=== PATIENT | female | born 1975 | race Caucasian/White ===

== ENCOUNTER 2023-08-11 14:18 | Inpatient (IN) ==
--- NOTE | 2023-08-11 15:36 | DR.CP ---
HPI Time Seen Time Seen by Provider: 08/11/23 15:36 PCP Primary Care Physician: dia Complaint Chief Complaint Doctor Comments: 48-year-old female presents for evaluation. Patient had sudden onset chest/back pain work, approximate 3 hours ago. 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 Chest pain better, now with pain across to her low back, coming and going. Worse with movement, worse with breathing. Chief Complaint:: pt reports right sided chest pain 10/10 that radiates to her back. states she cannot describe the pain but slightly improves with rest and worsens with exertion. pt denies cardiac hx. no other symptoms reported. pain started approx 1130 this morning Self Treatment fo Chief Complaint: n/a COVID-19 Coronavirus risk:travel/contact w/high risk person: No Has patient experienced Coronavirus symptoms: No Reviewed Nurses Notes Review: Yes Source History Provided: Patient Mode of Arrival Mode of Arrival: Wheelchair Timing Onset of Chief Complaint: 08/11/23 PMH PMH Past Medical History: Yes Past Medical History: Anxiety Past Surgical History: No Family History History of Family Medical Conditions: Yes Family Medical History: Cancer Social History Does patient currently use any type of tobacco product: Yes Have you used tobacco products in the last 12 months: Yes Type of Tobacco Use: Cigarettes Alcohol Use: Occasionally Do you use any recreational Drugs:: No Lives With: Alone Lives Where: Home Travel Risk Coronavirus risk:travel/contact w/high risk person: No Has patient experienced Coronavirus symptoms: No Infectious screening In the last 2 months have you had wt loss of >10#?: NO Have you had fever, night sweats or hemotysis?: No Have you traveled outside the country in the last 6 months?: No Isolation: Standard ROS Review of Systems Constitutional: No Symptoms Reported Eyes: No Symptoms Reported ENTM: No Symptoms Reported Respiratoy: Short of Breath Cardiovascular: Chest Pain Gastrointestinal/Abdominal: No Symptoms Reported Genitourinary: No Symptoms Reported Neurological: No Symptoms Reported Musculoskeletal: Back Pain Integumentary: No Symptoms Reported Hematologic/Lymphatic: No Symptoms Reported Psychiatric: No Symptoms Reported All Other Systems: Reviewed and Negative PE Vitals Vitals: Vital Signs Temperature 97.3 F Pulse Rate 117 Respiratory Rate 22 Respiratory Rate 22 Respiratory Rate 22 Blood Pressure [Right Arm] 125/71 Blood Pressure 126/71 O2 Sat by Pulse Oximetry 100 O2 Sat by Pulse Oximetry 97 General General Appearance: Alert and In Distress (Appears uncomfortable) Eyes Eye exam: PERRL and EOMI ENT ENT Exam: Normal Oropharynx and Mucous Membranes Moist Chest Chest Inspection: Normal Inspection Respiratory Respiratory Exam: Other (Decreased breath sounds right base); negative Accessory Muscle Use or Respiratory Distress Cardiovascular Cardiovascular Exam: Regular Rate, Normal Rhythm and Normal Heart Sounds Abdominal Exam Abdominal Exam: Normal Bowel Sounds and Soft; negative Tenderness Extremities Extremities Exam: Normal Inspection and Full ROM; negative Tenderness or Edema Back Back Exam: Tenderness (Right paralumbar tenderness, greater than left) Neurologic Neurological Exam: Alert, Oriented X3 and CN II-XII Intact; negative Motor Sensory Deficit Skin Skin Exam: Warm and Dry COURSE Treatment Treatment: 48-year-old female who had sudden onset of chest pain, radiating to the back, prior to arrival. Coming and going, appears to be having back spasms. Workup initiated. Patient given IV Toradol/Ativan, helping.. Chest x-ray rakel ws right-sided pneumothorax, approximately 30%. Radiology read as a tension pneumothorax, but film is rotated, patient in no distress, doubt tension. Call put out to surgery, Dr. Bradshaw,, to place a chest tube. Patient's attending is Dr. Dia, he will admit and consult with surgeon. [id number] - Dr bradshaw placed chest tube on the right side, follow-up x-ray with improvement of the pneumothorax. ROR Labs Reviewed Laboratory Results Reviewed?: Yes 08/11/23 15:30 08/11/23 15:30 Laboratory: WBC 14.9 X10^3/uL (3.6-10.0) H 08/11/23 15:30 RBC 4.09 X10^6/uL (3.5-5.4) 08/11/23 15:30 Hgb 13.5 g/dL (12.0-16.0) 08/11/23 15:30 Hct 40.1 % (36.0-47.0) 08/11/23 15:30 MCV 98.0 fL (80.0-100.0) 08/11/23 15:30 MCH 33.1 pg (27.0-34.0) 08/11/23 15:30 MCHC 33.8 g/dL (33.0-35.0) 08/11/23 15:30 RDW 13.0 % (11.6-16.5) 08/11/23 15:30 Plt Count 315 X10^3/uL (150.0-450.0) 08/11/23 15:30 MPV 7.8 fL (7.4-11.0) 08/11/23 15:30 Neut % (Auto) 74.7 % (42.0-75.0) 08/11/23 15:30 Lymph % (Auto) 16.6 % (21.0-51.0) L 08/11/23 15:30 [place] % (Auto) 7.3 % (0.0-13.0) 08/11/23 15:30 Eos % (Auto) 1.0 % (0.9-2.9) 08/11/23 15:30 Baso % (Auto) 0.4 % (0.2-1.0) 08/11/23 15:30 Neut # (Auto) 11.1 x10^3/uL (2.2-4.8) H 08/11/23 15:30 Lymph # (Auto) 2.5 X10^3/uL (1.3-2.9) 08/11/23 15:30 [place] # (Auto) 1.1 x10^3/uL (0.3-0.8) H 08/11/23 15:30 Eos # (Auto) 0.2 x10^3/uL (0.0-0.2) 08/11/23 15:30 Baso # (Auto) 0.1 X10^3/uL (0.0-0.1) 08/11/23 15:30 Absolute Nucleated RBC 0.0 /100WBC 08/11/23 15:30 D-Dimer 0.55 ug/ml (0.0-0.57) 08/11/23 15:30 Sodium 138 mmol/L (136-145) 08/11/23 15:30 Corrected Sodium TNP 08/11/23 15:30 Potassium 3.5 mmol/L (3.5-5.1) 08/11/23 15:30 Chloride 104 mmol/L (98-107) 08/11/23 15:30 Carbon Dioxide 24.9 mmol/L (21-32) 08/11/23 15:30 BUN 12 mg/dL (7-18) 08/11/23 15:30 Creatinine 0.69 mg/dL (0.55-1.02) 08/11/23 15:30 Est GFR (MDRD) Af Amer > 60 (>60) 08/11/23 15:30 Est GFR (MDRD) Non-Af > 60 (>60) 08/11/23 15:30 Glucose 102 mg/dL (65-99) H 08/11/23 15:30 Calcium 8.8 mg/dL (8.5-10.1) 08/11/23 15:30 Corrected Calcium TNP 08/11/23 15:30 Total Bilirubin 0.40 mg/dL (0.2-1.0) 08/11/23 15:30 AST 22 Units/L (15-37) 08/11/23 15:30 ALT 30 Units/L (12-78) 08/11/23 15:30 Alkaline Phosphatase 91 Units/L (46-116) 08/11/23 15:30 Troponin I High Sens < 4.0 ng/L (4.0-60.0) L 08/11/23 15:30 Total Protein 7.7 g/dL (6.4-8.2) 08/11/23 15:30 Albumin 3.7 g/dL (3.4-5.0) 08/11/23 15:30 Globulin 4.0 g/dL (2.5-4.5) 08/11/23 15:30 Albumin/Globulin Ratio 0.9 Ratio (1.1-2.1) L 08/11/23 15:30 Lipase 31 Units/L (16-77) 08/11/23 15:30 Specimen Type Clean catch urine 08/11/23 15:26 Urine Color Yellow (YELLOW) 08/11/23 15:26 Urine Appearance Clear (CLEAR) 08/11/23 15:26 Urine pH 6.0 (5.0 - 8.0) 08/11/23 15:26 Ur Specific [place] 1.030 (1.000-1.030) 08/11/23 15:26 Urine Protein 1+ (NEGATIVE) 08/11/23 15:26 Urine Glucose (UA) Negative (NEGATIVE) 08/11/23 15: Urine Ketones 2+ (NEGATIVE) 08/11/23 15:26 Urine Blood 1+ (NEGATIVE) 08/11/23 15:26 Urine Nitrite Negative (NEGATIVE) 08/11/23 15:26 Urine Bilirubin Negative (NEGATIVE) 08/11/23 15:26 Urine Urobilinogen 1+ (NORMAL) 08/11/23 15:26 Ur Leukocyte Esterase Negative (NEGATIVE) 08/11/23 15:26 Urine RBC 0-2 /HPF (0-3) 08/11/23 15:26 Urine WBC None seen /HPF (0-5) 08/11/23 15:26 Ur Squamous Epith Cells Rare /HPF (NEGATIVE) 08/11/23 15:26 Urine Bacteria Trace /HPF (NEGATIVE) 08/11/23 15:26 Hyaline Casts Rare /LPF (NEGATIVE) 08/11/23 15:26 Urine Mucus Rare /HPF (NEGATIVE) 08/11/23 15:26 Ur Culture Indicated? No/not indicated 08/11/23 15:26 Labs acceptable XRAY XRAY Interpreted by: Both X-ray Results: EXAM: CHEST, 1 VIEW HISTORY: RT SIDED chest PAIN; COMPARISON: None. TECHNIQUE: Chest x-ray single frontal view performed FINDINGS: There is a large right-sided pneumothorax which extends from the apex to the lung base with maximum pleural separation of greater than 3.7 cm. Total volume of the pneumothorax is estimated at 30%. There is leftward shift of the mediastinal structures indicating a tension component. This also contributes to compression of the lung parenchyma with adjacent atelectasis in the medial right lung base. No organized infiltrates are identified in the pleural spaces remain clear. The heart size is normal. No acute osseous abnormalities of the chest are identified. IMPRESSION: Large right-sided tension pneumothorax resulting in early leftward shift of the mediastinal structures and compression related atelectasis within the medial right lung base. Urgent chest tube placement is recommended. Follow-up radiographs are suggested following surgical intervention to monitor for decompression. A call report will be provided to the emergency room at the time of this dictation. THIS IS AN ELECTRONICALLY VERIFIED FINAL REPORT 08/11/2023 4:49 PM - Electronically signed by Andre Abreu MD I do not believe the patient's pneumothorax is tension, as the chest film is rotated - Dr Streeter EKG Rate: 103 [place]: Normal Rhythm: ST Block: RBBB (Incomplete) ST: Nonsp Opioid Opioid Risk Tool Age (Manav box if 16-45): No History of Preadolescent Sexual Abuse: No Total: 0 Total Score Risk Category: Low Risk Copyright: Tomi MCFADDEN predicting aberrant behaviors Discharge Plan Diagnosis Discharge Problem: Pneumothorax, right Discharge Plan Patient Disposition: 09 ADMITTED INPATIENT Condition: Stable Orders to Discharge Patient Discharge Orders: Transfer (Routine); Ordered 08/11/23 Ordered By: Marvin Streeter
[2023-08-11 15:40] LABS: BILIRUBIN,URINE NEGATIVE (NEGATIVE); BLOOD/HEMOGLOBIN,URINE 1+ (NEGATIVE); GLUCOSE, URINE NEGATIVE (NEGATIVE); KETONES,URINE 2+ (NEGATIVE); LEUKOCYTE ESTERASE ,URINE NEGATIVE (NEGATIVE); NITRITES,URINE NEGATIVE (NEGATIVE); PROTEIN,URINE 1+ (NEGATIVE); UROBILINOGEN,URINE 1+ (NORMAL)
--- NOTE | 2023-08-11 15:46 | EKG ---
Test Reason : chest pain Blood Pressure : */* mmHG Vent. Rate : 103 BPM Atrial Rate : 103 BPM P-R Int : 140 ms QRS Dur : 92 ms QT Int : 354 ms P-R-T Axes : 89 83 20 degrees QTc Int : 463 ms Sinus tachycardia Incomplete right bundle branch block T wave abnormality, consider anterior ischemia Abnormal ECG No previous ECGs available Confirmed by Luis Montenegro MD ([id number]) on 08/12/2023 7:21:58 AM Referred By: Confirmed By: Luis Montenegro MD
[2023-08-11 15:52] LABS: APPEARANCE,URINE CLEAR (CLEAR); BACTERIA,URINE TRACE /HPF (NEGATIVE); COLOR,URINE YELLOW (YELLOW); RBC,URINE 0-2 /HPF (0-3); SQUAMOUS EPITHELIAL CELL,UR RARE /HPF (NEGATIVE)
[2023-08-11 15:53] LABS: HYALINE CASTS, URINE RARE /LPF (NEGATIVE)
[2023-08-11] MEDS: ATIVAN INJ 2 MG VIAL IVP ONE (15:53)
[2023-08-11] MEDS: TORADOL 30 MG VIAL IVP ONE (15:53)
[2023-08-11] MEDS: NS 500 ML IV 500 ML IV ONE ×2 (15:54→16:29)
[2023-08-11 16:09] LABS: BASOPHILS # (AUTO) 0.1 X10^3/uL (0.0-0.1); BASOPHILS % (AUTO) 0.4 % (0.2-1.0); EOSINOPHILS # (AUTO) 0.2 x10^3/uL (0.0-0.2); HEMATOCRIT 40.1 % (36.0-47.0); HEMOGLOBIN 13.5 g/dL (12.0-16.0); LYMPHOCYTES # (AUTO) 2.5 X10^3/uL (1.3-2.9); LYMPHOCYTES % (AUTO) 16.6 % (21.0-51.0); MEAN CORPUSCULAR HEMOGLOBIN 33.1 pg (27.0-34.0); MEAN CORPUSCULAR HGB CONC 33.8 g/dL (33.0-35.0); MEAN PLATELET VOLUME 7.8 fL (7.4-11.0); MONOCYTES # (AUTO) 1.1 x10^3/uL (0.3-0.8); MONOCYTES % (AUTO) 7.3 % (0.0-13.0); NEUTROPHILS # (AUTO) 11.1 x10^3/uL (2.2-4.8); NEUTROPHILS % (AUTO) 74.7 % (42.0-75.0); PLATELET COUNT 315 X10^3/uL (150.0-450.0); RED BLOOD COUNT 4.09 X10^6/uL (3.5-5.4); WHITE BLOOD COUNT 14.9 X10^3/uL (3.6-10.0)
[2023-08-11 16:29] LABS: ALANINE AMINOTRANSFERASE 30 Units/L (12-78); ALBUMIN 3.7 g/dL (3.4-5.0); ALKALINE PHOSPHATASE 91 Units/L (46-116); ASPARTATE AMINO TRANSFERASE 22 Units/L (15-37); BLOOD UREA NITROGEN 12 mg/dL (7-18); CALCIUM 8.8 mg/dL (8.5-10.1); CARBON DIOXIDE 24.9 mmol/L (21-32); CHLORIDE 104 mmol/L (98-107); CREATININE 0.69 mg/dL (0.55-1.02); GLUCOSE 102 mg/dL (65-99); LIPASE 31 Units/L (16-77); POTASSIUM 3.5 mmol/L (3.5-5.1); SODIUM 138 mmol/L (136-145); TOTAL PROTEIN 7.7 g/dL (6.4-8.2); eGFR NON BLACK RACES > 60 (>60)
[2023-08-11] MEDS: TORADOL 30 MG VIAL ONE (16:29)
[2023-08-11] MEDS: ATIVAN INJ 2 MG VIAL ONE (16:29)
--- NOTE | 2023-08-11 16:52 | RAD ---
EXAM:CHEST, 1 VIEWHISTORY:RT SIDED chest PAIN;COMPARISON:None.TECHNIQUE:Chest x-ray single frontal view performedFINDINGS:There is a large right-sided pneumothorax which extends from the apex to the lung base with maximum pleural separation of greater than 3.7 cm. Total volume of the pneumothorax is estimated at 30%. There is leftward shift of the mediastinal structures indicating a tension component. This also contributes to compression of the lung parenchyma with adjacent atelectasis in the medial right lung base. No organized infiltrates are identified in the pleural spaces remain clear. The heart size is normal. No acute osseous abnormalities of the chest are identified.IMPRESSION:Large right-sided tension pneumothorax resulting in early leftward shift of the mediastinal structures and compression related atelectasis within the medial right lung base.Urgent chest tube placement is recommended. Follow-up radiographs are suggested following surgical intervention to monitor for decompression.A call report will be provided to the emergency room at the time of this dictation.THIS IS AN ELECTRONICALLY VERIFIED FINAL REPORT08/11/2023 4:49 PM - Electronically signed by Andre Abreu MD
[2023-08-11] MEDS: VERSED IVP ONE (17:30)
[2023-08-11] MEDS: MORPHINE SULFATE INJ 4 MG IVP ONE (17:30)
[2023-08-11] MEDS ORDERED: MORPHINE SULFATE INJ 4 MG ONE (17:31)
[2023-08-11] MEDS ORDERED: VERSED ONE (17:31)
[2023-08-11] MEDS ORDERED: ZOFRAN INJ 4 MG VIAL IVP PRN (19:32)
[2023-08-11] MEDS ORDERED: MORPHINE SULFATE INJ 4 MG IVP PRN (19:32)
[2023-08-11 20:09] VITALS: BMI 14.6
--- NOTE | 2023-08-11 20:15 | RAD ---
EXAM:CHEST, 1 VIEWHISTORY:CHEST TUBE PLACEMENT;COMPARISON:08/11/2023 at 4:03 p.m..TECHNIQUE:Frontal views of the chestFINDINGS:Heart size is normal. A right-sided chest tube has successfully been placed and the right-sided pneumothorax is much smaller. There is no complication identified.IMPRESSION:Successful right-sided chest tube placement and increased expansion of the right lung.THIS IS AN ELECTRONICALLY VERIFIED FINAL REPORT08/11/2023 8:12 PM - Electronically signed by Bird Pierce MD
[2023-08-11] MEDS: XYLOCAINE 1 % (PLAIN) ONE (20:22)
[2023-08-11] MEDS: NORCO 5/325 MG TAB PO PRN (20:56)
[2023-08-11] MEDS: ANCEF VIAL 1 GRAM IVP SCH (21:28)
[2023-08-11] MEDS: K-DUR TAB 20 MEQ PO ONE (21:28)
[2023-08-12 05:08] LABS: BASOPHILS % (AUTO) 0.5 % (0.2-1.0); EOSINOPHILS # (AUTO) 0.2 x10^3/uL (0.0-0.2); EOSINOPHILS % (AUTO) 2.7 % (0.9-2.9); HEMOGLOBIN 12.2 g/dL (12.0-16.0); LYMPHOCYTES % (AUTO) 12.6 % (21.0-51.0); MEAN CORPUSCULAR HEMOGLOBIN 33.9 pg (27.0-34.0); MEAN CORPUSCULAR HGB CONC 34.1 g/dL (33.0-35.0); MEAN CORPUSCULAR VOLUME 99.4 fL (80.0-100.0); MEAN PLATELET VOLUME 7.7 fL (7.4-11.0); MONOCYTES # (AUTO) 0.9 x10^3/uL (0.3-0.8); MONOCYTES % (AUTO) 11.1 % (0.0-13.0); NEUTROPHILS # (AUTO) 5.9 x10^3/uL (2.2-4.8); NEUTROPHILS % (AUTO) 73.1 % (42.0-75.0); PLATELET COUNT 260 X10^3/uL (150.0-450.0); RED BLOOD COUNT 3.62 X10^6/uL (3.5-5.4); RED CELL DISTRIBUTION WIDTH 13.1 % (11.6-16.5); WHITE BLOOD COUNT 8.1 X10^3/uL (3.6-10.0)
[2023-08-12 05:25] LABS: ALANINE AMINOTRANSFERASE 24 Units/L (12-78); ALBUMIN 2.8 g/dL (3.4-5.0); ALKALINE PHOSPHATASE 64 Units/L (46-116); ASPARTATE AMINO TRANSFERASE 20 Units/L (15-37); BLOOD UREA NITROGEN 10 mg/dL (7-18); CARBON DIOXIDE 25.2 mmol/L (21-32); CHLORIDE 106 mmol/L (98-107); CREATININE 0.55 mg/dL (0.55-1.02); GLUCOSE 87 mg/dL (65-99); POTASSIUM 3.7 mmol/L (3.5-5.1); SODIUM 141 mmol/L (136-145); eGFR NON BLACK RACES > 60 (>60)
--- NOTE | 2023-08-12 08:12 | RAD ---
EXAM: Portable AP chest HISTORY: Pneumothorax COMPARISON: 08/11/2023 FINDINGS: Heart size normal with no definite pulmonary infiltrate/pneumonia or significant pneumothorax now re maining. Stable position of right chest tube. The pleural spaces and hilar structures remain normal . IMPRESSION: Similar position of right chest tube. There is no significant pneumothorax now demonstrated. THIS IS AN ELECTRONICALLY VERIFIED FINAL REPORT 08/12/2023 8:09 AM - Electronically signed by Iain Foster MD
[2023-08-12] MEDS: MAG-OX TAB PO SCH (09:02)
[2023-08-12] MEDS: K-DUR TAB 20 MEQ PO SCH (09:02)
--- NOTE | 2023-08-12 09:47 | DR.PROGNOT ---
HOSPITAL PROGRESS NOTE Progress Note for Day of: Progress Note Date: 08/12/23 Chief Complaint Chief Complaint: Pt is comfortable ,c/o moderate pain at the CT site . no SOB. no coughing . chest X ray showed good tube placement and no pneumothorax.. Past Medical Family Social History Past Med/Fam/Surg Hx: No changes since H&P Allergies: Allergies No Known Drug Allergies Allergy (Unknown, Verified 08/11/23 17:10) Vital Signs Vital Signs: Vital Signs Temperature 98.5 F Pulse Rate 65 Pulse Rate 75 Pulse Rate 73 Pulse Rate 91 Pulse Rate 85 Pulse Rate 71 Pulse Rate 76 Pulse Rate 61 Pulse Rate 62 Pulse Rate 65 Pulse Rate 60 Pulse Rate 58 Pulse Rate 60 Pulse Rate 62 Pulse Rate 61 Pulse Rate 62 Pulse Rate 62 Pulse Rate 62 Pulse Rate 63 Pulse Rate 66 Pulse Rate 64 Pulse Rate 67 Pulse Rate 61 Pulse Rate 62 Pulse Rate 61 Pulse Rate 79 Pulse Rate 75 Pulse Rate 65 Pulse Rate 65 Pulse Rate 61 Pulse Rate 62 Pulse Rate 67 Pulse Rate 67 Pulse Rate 67 Respiratory Rate 21 Respiratory Rate 19 Respiratory Rate 24 Respiratory Rate 23 Respiratory Rate 17 Respiratory Rate 23 Respiratory Rate 33 Respiratory Rate 20 Respiratory Rate 16 Respiratory Rate 34 Respiratory Rate 22 Respiratory Rate 18 Respiratory Rate 26 Respiratory Rate 22 Respiratory Rate 24 Respiratory Rate 23 Respiratory Rate 25 Respiratory Rate 15 Respiratory Rate 21 Respiratory Rate 21 Respiratory Rate 15 Respiratory Rate 19 Respiratory Rate 15 Respiratory Rate 21 Respiratory Rate 18 Respiratory Rate 23 Respiratory Rate 17 Respiratory Rate 19 Respiratory Rate 29 Respiratory Rate 17 Respiratory Rate 16 Respiratory Rate 16 Respiratory Rate 16 Respiratory Rate 17 Respiratory Rate 17 Respiratory Rate 18 Blood Pressure 99/55 Blood Pressure 106/58 Blood Pressure 105/57 Blood Pressure 105/57 Blood Pressure 95/50 Blood Pressure 95/50 Blood Pressure 116/57 Blood Pressure 116/57 Blood Pressure 116/57 Blood Pressure 96/58 Blood Pressure 96/58 O2 Sat by Pulse Oximetry 100 O2 Sat by Pulse Oximetry 100 O2 Sat by Pulse Oximetry 98 O2 Sat by Pulse Oximetry 98 O2 Sat by Pulse Oximetry 99 O2 Sat by Pulse Oximetry 99 O2 Sat by Pulse Oximetry 100 O2 Sat by Pulse Oximetry 100 O2 Sat by Pulse Oximetry 99 O2 Sat by Pulse Oximetry 100 O2 Sat by Pulse Oximetry 100 O2 Sat by Pulse Oximetry 100 O2 Sat by Pulse Oximetry 100 O2 Sat by Pulse Oximetry 100 O2 Sat by Pulse Oximetry 100 O2 Sat by Pulse Oximetry 100 O2 Sat by Pulse Oximetry 100 O2 Sat by Pulse Oximetry 99 O2 Sat by Pulse Oximetry 99 O2 Sat by Pulse Oximetry 99 O2 Sat by Pulse Oximetry 100 O2 Sat by Pulse Oximetry 99 O2 Sat by Pulse Oximetry 100 O2 Sat by Pulse Oximetry 100 O2 Sat by Pulse Oximetry 100 O2 Sat by Pulse Oximetry 98 O2 Sat by Pulse Oximetry 99 O2 Sat by Pulse Oximetry 100 O2 Sat by Pulse Oximetry 99 O2 Sat by Pulse Oximetry 100 O2 Sat by Pulse Oximetry 100 O2 Sat by Pulse Oximetry 100 O2 Sat by Pulse Oximetry 100 O2 Sat by Pulse Oximetry 100 Physical Exam Oriented: Normal Throat: Normal Respiratory: Normal Cardiovascular: Normal GI:Auscultation: Normal Speech Pattern: Clear and Appropriate Laboratory and Diagnostics 08/12/23 04:41 08/12/23 04:41 Labs: Laboratory WBC 8.1 X10^3/uL (3.6-10.0) 08/12/23 04:41 RBC 3.62 X10^6/uL (3.5-5.4) 08/12/23 04:41 Hgb 12.2 g/dL (12.0-16.0) 08/12/23 04:41 Hct 36.0 % (36.0-47.0) 08/12/23 04:41 MCV 99.4 fL (80.0-100.0) 08/12/23 04:41 MCH 33.9 pg (27.0-34.0) 08/12/23 04:41 MCHC 34.1 g/dL (33.0-35.0) 08/12/23 04:41 RDW 13.1 % (11.6-16.5) 08/12/23 04:41 Plt Count 260 X10^3/uL (150.0-450.0) 08/12/23 04:41 MPV 7.7 fL (7.4-11.0) 08/12/23 04:41 Neut % (Auto) 73.1 % (42.0-75.0) 08/12/23 04:41 Lymph % (Auto) 12.6 % (21.0-51.0) L 08/12/23 04:41 [place] % (Auto) 11.1 % (0.0-13.0) 08/12/23 04:41 Eos % (Auto) 2.7 % (0.9-2.9) 08/12/23 04:41 Baso % (Auto) 0.5 % (0.2-1.0) 08/12/23 04:41 Neut # (Auto) 5.9 x10^3/uL (2.2-4.8) H 08/12/23 04:41 Lymph # (Auto) 1.0 X10^3/uL (1.3-2.9) L 08/12/23 04:41 [place] # (Auto) 0.9 x10^3/uL (0.3-0.8) H 08/12/23 04:41 Eos # (Auto) 0.2 x10^3/uL (0.0-0.2) 08/12/23 04:41 Baso # (Auto) 0.0 X10^3/uL (0.0-0.1) 08/12/23 04:41 Absolute Nucleated RBC 0.1 /100WBC 08/12/23 04:41 D-Dimer 0.55 ug/ml (0.0-0.57) 08/11/23 15:30 Sodium 141 mmol/L (136-145) 08/12/23 04:41 Corrected Sodium TNP 08/12/23 04:41 Potassium 3.7 mmol/L (3.5-5.1) 08/12/23 04:41 Chloride 106 mmol/L (98-107) 08/12/23 04:41 Carbon Dioxide 25.2 mmol/L (21-32) 08/12/23 04:41 BUN 10 mg/dL (7-18) 08/12/23 04:41 Creatinine 0.55 mg/dL (0.55-1.02) 08/12/23 04:41 Est GFR (MDRD) Af Amer > 60 (>60) 08/12/23 04:41 Est GFR (MDRD) Non-Af > 60 (>60) 08/12/23 04:41 Glucose 87 mg/dL (65-99) 08/12/23 04:41 Calcium 8.0 mg/dL (8.5-10.1) L 08/12/23 04:41 Corrected Calcium 9.0 mg/dL (8.5-10.1) 08/12/23 04:41 Magnesium 1.8 mg/dL (2.0-2.9) L 08/12/23 04:41 Total Bilirubin 0.90 mg/dL (0.2-1.0) 08/12/23 04:41 AST 20 Units/L (15-37) 08/12/23 04:41 ALT 24 Units/L (12-78) 08/12/23 04:41 Alkaline Phosphatase 64 Units/L (46-116) 08/12/23 04:41 Troponin I High Sens < 4.0 ng/L (4.0-60.0) L 08/11/23 15:30 Total Protein 6.0 g/dL (6.4-8.2) L 08/12/23 04:41 Albumin 2.8 g/dL (3.4-5.0) L 08/12/23 04:41 Globulin 3.2 g/dL (2.5-4.5) 08/12/23 04:41 Albumin/Globulin Ratio 0.9 Ratio (1.1-2.1) L 08/12/23 04:41 Lipase 31 Units/L (16-77) 08/11/23 15:30 Specimen Type Clean catch urine 08/11/23 15:26 Urine Color Yellow (YELLOW) 08/11/23 15:26 Urine Appearance Clear (CLEAR) 08/11/23 15:26 Urine pH 6.0 (5.0 - 8.0) 08/11/23 15:26 Ur Specific [place] 1.030 (1.000-1.030) 08/11/23 15:26 Urine Protein 1+ (NEGATIVE) 08/11/23 15:26 Urine Glucose (UA) Negative (NEGATIVE) 08/11/23 15:26 Urine Ketones 2+ (NEGATIVE) 08/11/23 15:26 Urine Blood 1+ (NEGATIVE) 08/11/23 15:26 Urine Nitrite Negative (NEGATIVE) 08/11/23 15:26 Urine Bilirubin Negative (NEGATIVE) 08/11/23 15:26 Urine Urobilinogen 1+ (NORMAL) 08/11/23 15:26 Ur Leukocyte Esterase Negative (NEGATIVE) 08/11/23 15:26 Urine RBC 0-2 /HPF (0-3) 08/11/23 15:26 Urine WBC None seen /HPF (0-5) 08/11/23 15:26 Ur Squamous Epith Cells Rare /HPF (NEGATIVE) 08/11/23 15:26 Urine Bacteria Trace /HPF (NEGATIVE) 08/11/23 15:26 Hyaline Casts Rare /LPF (NEGATIVE) 08/11/23 15:26 Urine Mucus Rare /HPF (NEGATIVE) 08/11/23 15:26 Ur Culture Indicated? No/not indicated 08/11/23 15:26 Assessment and Plan 1: RT pneumothorax, S/P placement of chest tube . same plan . incentive spirometer chest X ray in am .. Problem Patient Problems: Patient Problems Pneumothorax, right (Acute) J93.9
[2023-08-12] MEDS: CONSULT PHARMACY - POTASSIUM & MAGNESIUM XX SCH ×2 (10:05)
[2023-08-12] MEDS: LEXAPRO PO SCH (10:06)
[2023-08-12] MEDS: TORADOL 15 MG VIAL IVP PRN (17:28)
[2023-08-12] MEDS: COLACE CAP 100 MG PO SCH (21:33)
[2023-08-13 06:44] LABS: BASOPHILS # (AUTO) 0.1 X10^3/uL (0.0-0.1); BASOPHILS % (AUTO) 0.7 % (0.2-1.0); EOSINOPHILS # (AUTO) 0.3 x10^3/uL (0.0-0.2); EOSINOPHILS % (AUTO) 3.2 % (0.9-2.9); HEMATOCRIT 36.4 % (36.0-47.0); HEMOGLOBIN 12.4 g/dL (12.0-16.0); LYMPHOCYTES # (AUTO) 1.4 X10^3/uL (1.3-2.9); LYMPHOCYTES % (AUTO) 15.2 % (21.0-51.0); MEAN CORPUSCULAR HEMOGLOBIN 33.9 pg (27.0-34.0); MEAN CORPUSCULAR HGB CONC 33.9 g/dL (33.0-35.0); MEAN CORPUSCULAR VOLUME 99.8 fL (80.0-100.0); MEAN PLATELET VOLUME 7.4 fL (7.4-11.0); MONOCYTES # (AUTO) 1.1 x10^3/uL (0.3-0.8); MONOCYTES % (AUTO) 11.4 % (0.0-13.0); NEUTROPHILS # (AUTO) 6.4 x10^3/uL (2.2-4.8); NEUTROPHILS % (AUTO) 69.5 % (42.0-75.0); PLATELET COUNT 249 X10^3/uL (150.0-450.0); RED BLOOD COUNT 3.65 X10^6/uL (3.5-5.4); RED CELL DISTRIBUTION WIDTH 12.7 % (11.6-16.5); WHITE BLOOD COUNT 9.2 X10^3/uL (3.6-10.0)
[2023-08-13 06:56] LABS: ALANINE AMINOTRANSFERASE 19 Units/L (12-78); ALBUMIN 2.7 g/dL (3.4-5.0); ALKALINE PHOSPHATASE 67 Units/L (46-116); ASPARTATE AMINO TRANSFERASE 16 Units/L (15-37); BLOOD UREA NITROGEN 7 mg/dL (7-18); CARBON DIOXIDE 26.9 mmol/L (21-32); CHLORIDE 106 mmol/L (98-107); CREATININE 0.59 mg/dL (0.55-1.02); GLUCOSE 93 mg/dL (65-99); MAGNESIUM 2.2 mg/dL (2.0-2.9); POTASSIUM 4.3 mmol/L (3.5-5.1); SODIUM 139 mmol/L (136-145); TOTAL PROTEIN 6.2 g/dL (6.4-8.2); eGFR NON BLACK RACES > 60 (>60)
[2023-08-13] MEDS: BUSPAR PO PRN (08:13)
[2023-08-13] MEDS: LEXAPRO ONE (08:32)
--- NOTE | 2023-08-13 08:42 | RAD ---
EXAM:CHEST, 1 VIEWHISTORY:Pneumothorax S/P Chest tube;COMPARISON:08/12/2023FINDINGS:The cardiomediastinal silhouette is stable.Chronic interstitial changes in the lungs. No acute airspace disease. No pneumothorax or effusion.No acute osseous abnormality.IMPRESSION:No acute cardiopulmonary disease.THIS IS AN ELECTRONICALLY VERIFIED FINAL REPORT08/13/2023 8:39 AM - Electronically signed by Lanre Guevara MD
[2023-08-14 04:43] LABS: BASOPHILS # (AUTO) 0.1 X10^3/uL (0.0-0.1); BASOPHILS % (AUTO) 0.7 % (0.2-1.0); EOSINOPHILS # (AUTO) 0.4 x10^3/uL (0.0-0.2); EOSINOPHILS % (AUTO) 4.9 % (0.9-2.9); LYMPHOCYTES # (AUTO) 1.3 X10^3/uL (1.3-2.9); LYMPHOCYTES % (AUTO) 15.6 % (21.0-51.0); MEAN CORPUSCULAR HEMOGLOBIN 33.4 pg (27.0-34.0); MEAN CORPUSCULAR HGB CONC 33.4 g/dL (33.0-35.0); MEAN PLATELET VOLUME 7.8 fL (7.4-11.0); MONOCYTES % (AUTO) 11.7 % (0.0-13.0); NEUTROPHILS # (AUTO) 5.5 x10^3/uL (2.2-4.8); NEUTROPHILS % (AUTO) 67.1 % (42.0-75.0); PLATELET COUNT 267 X10^3/uL (150.0-450.0); RED CELL DISTRIBUTION WIDTH 12.9 % (11.6-16.5); WHITE BLOOD COUNT 8.2 X10^3/uL (3.6-10.0)
[2023-08-14 04:53] LABS: ALANINE AMINOTRANSFERASE 17 Units/L (12-78); ALBUMIN 2.6 g/dL (3.4-5.0); ALKALINE PHOSPHATASE 62 Units/L (46-116); ASPARTATE AMINO TRANSFERASE 16 Units/L (15-37); BLOOD UREA NITROGEN 9 mg/dL (7-18); CALCIUM 8.2 mg/dL (8.5-10.1); CARBON DIOXIDE 27.3 mmol/L (21-32); CHLORIDE 107 mmol/L (98-107); COR CA(FOR HYPOALB) 9.3 mg/dL (8.5-10.1); CREATININE 0.58 mg/dL (0.55-1.02); GLUCOSE 94 mg/dL (65-99); POTASSIUM 4.5 mmol/L (3.5-5.1); SODIUM 139 mmol/L (136-145); TOTAL PROTEIN 6.2 g/dL (6.4-8.2); eGFR NON BLACK RACES > 60 (>60)
[2023-08-14] MEDS: LEXAPRO ONE (08:42)
--- NOTE | 2023-08-15 06:50 | RAD ---
EXAM: AP chest HISTORY: Pneumothorax COMPARISON: 08/13/2023 FINDINGS: Heart size normal with clear left chest. Stable position of right chest tube. A small right upper pneumothorax is now noted estimated at 5%. There is no evidence for pleural effusion or infiltrate/a telectasis. IMPRESSION: Small recurrent right upper pneumothorax. THIS IS AN ELECTRONICALLY VERIFIED FINAL REPORT 08/15/2023 6:47 AM - Electronically signed by Iain Foster MD
[2023-08-15] MEDS: PATIENT'S HOME MEDICATION PO PRN (08:10)
[2023-08-15] MEDS: PATIENT'S HOME MEDICATION PO SCH (08:10)
[2023-08-15] MEDS: MILK OF MAGNESIA PO PRN (17:31)
--- NOTE | 2023-08-15 17:31 | DR.PROGNOT ---
HOSPITAL PROGRESS NOTE Progress Note for Day of: Progress Note Date: 08/15/23 Chief Complaint Chief Complaint: Pt is comfortable ,c/o moderate pain at the CT site . no SOB. no coughing . chest X ray showed small pneumothorax . Past Medical Family Social History Past Med/Fam/Surg Hx: No changes since H&P Allergies: Allergies No Known Drug Allergies Allergy (Unknown, Verified 08/11/23 17:10) Vital Signs Vital Signs: Vital Signs Temperature 98.1 F Temperature 98.4 F Pulse Rate 62 Pulse Rate 72 Pulse Rate 74 Pulse Rate 61 Pulse Rate 60 Pulse Rate 60 Pulse Rate 68 Pulse Rate 71 Respiratory Rate 21 Respiratory Rate 20 Respiratory Rate 22 Respiratory Rate 27 Respiratory Rate 21 Respiratory Rate 18 Respiratory Rate 22 Respiratory Rate 17 Respiratory Rate 22 Respiratory Rate 24 Respiratory Rate 32 Blood Pressure 94/53 Blood Pressure 97/56 Blood Pressure 94/52 Blood Pressure 105/52 Blood Pressure 93/55 Blood Pressure 98/58 Blood Pressure 98/53 O2 Sat by Pulse Oximetry 99 O2 Sat by Pulse Oximetry 100 O2 Sat by Pulse Oximetry 99 O2 Sat by Pulse Oximetry 99 O2 Sat by Pulse Oximetry 99 O2 Sat by Pulse Oximetry 100 O2 Sat by Pulse Oximetry 100 O2 Sat by Pulse Oximetry 99 Physical Exam Oriented: Normal Throat: Normal Respiratory: Normal Cardiovascular: Normal GI:Auscultation: Normal Speech Pattern: Clear and Appropriate Laboratory and Diagnostics 08/14/23 04:12 08/14/23 04:12 Labs: Laboratory WBC 8.2 X10^3/uL (3.6-10.0) 08/14/23 04:12 RBC 3.60 X10^6/uL (3.5-5.4) 08/14/23 04:12 Hgb 12.0 g/dL (12.0-16.0) 08/14/23 04:12 Hct 36.0 % (36.0-47.0) 08/14/23 04:12 MCV 100.0 fL (80.0-100.0) 08/14/23 04:12 MCH 33.4 pg (27.0-34.0) 08/14/23 04:12 MCHC 33.4 g/dL (33.0-35.0) 08/14/23 04:12 RDW 12.9 % (11.6-16.5) 08/14/23 04:12 Plt Count 267 X10^3/uL (150.0-450.0) 08/14/23 04:12 MPV 7.8 fL (7.4-11.0) 08/14/23 04:12 Neut % (Auto) 67.1 % (42.0-75.0) 08/14/23 04:12 Lymph % (Auto) 15.6 % (21.0-51.0) L 08/14/23 04:12 [place] % (Auto) 11.7 % (0.0-13.0) 08/14/23 04:12 Eos % (Auto) 4.9 % (0.9-2.9) H 08/14/23 04:12 Baso % (Auto) 0.7 % (0.2-1.0) 08/14/23 04:12 Neut # (Auto) 5.5 x10^3/uL (2.2-4.8) H 08/14/23 04:12 Lymph # (Auto) 1.3 X10^3/uL (1.3-2.9) 08/14/23 04:12 [place] # (Auto) 1.0 x10^3/uL (0.3-0.8) H 08/14/23 04:12 Eos # (Auto) 0.4 x10^3/uL (0.0-0.2) H 08/14/23 04:12 Baso # (Auto) 0.1 X10^3/uL (0.0-0.1) 08/14/23 04:12 Absolute Nucleated RBC 0.0 /100WBC 08/14/23 04:12 D-Dimer 0.55 ug/ml (0.0-0.57) 08/11/23 15:30 Sodium 139 mmol/L (136-145) 08/14/23 04:12 Corrected Sodium TNP 08/14/23 04:12 Potassium 4.5 mmol/L (3.5-5.1) 08/14/23 04:12 Chloride 107 mmol/L (98-107) 08/14/23 04:12 Carbon Dioxide 27.3 mmol/L (21-32) 08/14/23 04:12 BUN 9 mg/dL (7-18) 08/14/23 04:12 Creatinine 0.58 mg/dL (0.55-1.02) 08/14/23 04:12 Est GFR (MDRD) Af Amer > 60 (>60) 08/14/23 04:12 Est GFR (MDRD) Non-Af > 60 (>60) 08/14/23 04:12 Glucose 94 mg/dL (65-99) 08/14/23 04:12 Calcium 8.2 mg/dL (8.5-10.1) L 08/14/23 04:12 Corrected Calcium 9.3 mg/dL (8.5-10.1) 08/14/23 04:12 Magnesium 2.2 mg/dL (2.0-2.9) 08/13/23 06:34 Total Bilirubin 0.40 mg/dL (0.2-1.0) 08/14/23 04:12 AST 16 Units/L (15-37) 08/14/23 04:12 ALT 17 Units/L (12-78) 08/14/23 04:12 Alkaline Phosphatase 62 Units/L (46-116) 08/14/23 04:12 Troponin I High Sens < 4.0 ng/L (4.0-60.0) L 08/11/23 15:30 Total Protein 6.2 g/dL (6.4-8.2) L 08/14/23 04:12 Albumin 2.6 g/dL (3.4-5.0) L 08/14/23 04:12 Globulin 3.6 g/dL (2.5-4.5) 08/14/23 04:12 Albumin/Globulin Ratio 0.7 Ratio (1.1-2.1) L 08/14/23 04:12 Lipase 31 Units/L (16-77) 08/11/23 15:30 Specimen Type Clean catch urine 08/11/23 15:26 Urine Color Yellow (YELLOW) 08/11/23 15:26 Urine Appearance Clear (CLEAR) 08/11/23 15:26 Urine pH 6.0 (5.0 - 8.0) 08/11/23 15:26 Ur Specific [place] 1.030 (1.000-1.030) 08/11/23 15:26 Urine Protein 1+ (NEGATIVE) 08/11/23 15:26 Urine Glucose (UA) Negative (NEGATIVE) 08/11/23 15:26 Urine Ketones 2+ (NEGATIVE) 08/11/23 15:26 Urine Blood 1+ (NEGATIVE) 08/11/23 15:26 Urine Nitrite Negative (NEGATIVE) 08/11/23 15:26 Urine Bilirubin Negative (NEGATIVE) 08/11/23 15:26 Urine Urobilinogen 1+ (NORMAL) 08/11/23 15:26 Ur Leukocyte Esterase Negative (NEGATIVE) 08/11/23 15:26 Urine RBC 0-2 /HPF (0-3) 08/11/23 15:26 Urine WBC None seen /HPF (0-5) 08/11/23 15:26 Ur Squamous Epith Cells Rare /HPF (NEGATIVE) 08/11/23 15:26 Urine Bacteria Trace /HPF (NEGATIVE) 08/11/23 15:26 Hyaline Casts Rare /LPF (NEGATIVE) 08/11/23 15:26 Urine Mucus Rare /HPF (NEGATIVE) 08/11/23 15:26 Ur Culture Indicated? No/not indicated 08/11/23 15:26 Assessment and Plan 1: RT pneumothorax, S/P placement of chest tube . same plan . incentive spirometer chest X ray in am ..possible d/c CT in am . Problem Patient Problems: Patient Problems Pneumothorax, right (Acute) J93.9
[2023-08-16 04:51] LABS: BASOPHILS # (AUTO) 0.1 X10^3/uL (0.0-0.1); BASOPHILS % (AUTO) 1.1 % (0.2-1.0); EOSINOPHILS # (AUTO) 0.7 x10^3/uL (0.0-0.2); EOSINOPHILS % (AUTO) 9.6 % (0.9-2.9); HEMATOCRIT 36.6 % (36.0-47.0); HEMOGLOBIN 12.2 g/dL (12.0-16.0); LYMPHOCYTES # (AUTO) 2.2 X10^3/uL (1.3-2.9); LYMPHOCYTES % (AUTO) 31.1 % (21.0-51.0); MEAN CORPUSCULAR HEMOGLOBIN 33.4 pg (27.0-34.0); MEAN CORPUSCULAR HGB CONC 33.5 g/dL (33.0-35.0); MEAN CORPUSCULAR VOLUME 99.7 fL (80.0-100.0); MEAN PLATELET VOLUME 8.1 fL (7.4-11.0); MONOCYTES # (AUTO) 0.8 x10^3/uL (0.3-0.8); MONOCYTES % (AUTO) 11.9 % (0.0-13.0); NEUTROPHILS # (AUTO) 3.3 x10^3/uL (2.2-4.8); NEUTROPHILS % (AUTO) 46.3 % (42.0-75.0); PLATELET COUNT 309 X10^3/uL (150.0-450.0); RED BLOOD COUNT 3.67 X10^6/uL (3.5-5.4); RED CELL DISTRIBUTION WIDTH 12.7 % (11.6-16.5); WHITE BLOOD COUNT 7.1 X10^3/uL (3.6-10.0)
[2023-08-16 04:56] LABS: BLOOD UREA NITROGEN 10 mg/dL (7-18); CALCIUM 8.5 mg/dL (8.5-10.1); CARBON DIOXIDE 27.6 mmol/L (21-32); CHLORIDE 107 mmol/L (98-107); CREATININE 0.66 mg/dL (0.55-1.02); GLUCOSE 89 mg/dL (65-99); POTASSIUM 4.8 mmol/L (3.5-5.1); SODIUM 141 mmol/L (136-145); eGFR NON BLACK RACES > 60 (>60)
[2023-08-16 05:17] LABS: ALANINE AMINOTRANSFERASE 14 Units/L (12-78); ALBUMIN 2.4 g/dL (3.4-5.0); ALKALINE PHOSPHATASE 52 Units/L (46-116); ASPARTATE AMINO TRANSFERASE 13 Units/L (15-37); COR CA(FOR HYPOALB) 9.8 mg/dL (8.5-10.1); TOTAL PROTEIN 6.1 g/dL (6.4-8.2)
--- NOTE | 2023-08-16 13:12 | RAD ---
EXAM:CHEST, 1 VIEWHISTORY:SPONTANEOUS RT PNEUMOTHORAX;COMPARISON:No relevant prior studies were available for comparison at the time of interpretation.TECHNIQUE:CHEST, 1 VIEWFINDINGS:Chest:Lines and tubes: There is a right chest tube.Mediastinum: Cardiac and mediastinal shadow is within normal limits for size and contour.Pulmonary vessels: No pulmonary vascular congestion.Lung stevens: No suspicious airspace opacity.Pleura: Pneumothorax seen on the rightBones and soft tissues: No acute osseous or soft tissue abnormality.IMPRESSION:1. Moderate right pneumothorax2. Right chest tube in satisfactory position.THIS IS AN ELECTRONICALLY VERIFIED FINAL REPORT08/16/2023 1:08 PM - Electronically signed by Ken Johnson MD
--- NOTE | 2023-08-16 14:57 | DR.PROGNOT ---
HOSPITAL PROGRESS NOTE Progress Note for Day of: Progress Note Date: 08/16/23 Chief Complaint Chief Complaint: Pt is comfortable ,c/o moderate pain at the CT site . no SOB. no coughing . chest X ray showed 15% pneumothorax after clamping the tube .. Past Medical Family Social History Past Med/Fam/Surg Hx: No changes since H&P Allergies: Allergies No Known Drug Allergies Allergy (Unknown, Verified 08/11/23 17:10) Vital Signs Vital Signs: Vital Signs Temperature 98.0 F Pulse Rate 75 Pulse Rate 75 Pulse Rate 75 Pulse Rate 58 Respiratory Rate 20 Respiratory Rate 19 Respiratory Rate 20 Respiratory Rate 15 Respiratory Rate 20 Respiratory Rate 15 Respiratory Rate 21 Blood Pressure 95/62 Blood Pressure 122/58 Blood Pressure 122/58 Blood Pressure 99/55 O2 Sat by Pulse Oximetry 99 O2 Sat by Pulse Oximetry 100 O2 Sat by Pulse Oximetry 100 O2 Sat by Pulse Oximetry 100 Physical Exam Oriented: Normal Throat: Normal Respiratory: Normal Cardiovascular: Normal GI:Auscultation: Normal Speech Pattern: Clear and Appropriate Laboratory and Diagnostics 08/16/23 04:03 08/16/23 04:03 Labs: Laboratory WBC 7.1 X10^3/uL (3.6-10.0) 08/16/23 04:03 RBC 3.67 X10^6/uL (3.5-5.4) 08/16/23 04:03 Hgb 12.2 g/dL (12.0-16.0) 08/16/23 04:03 Hct 36.6 % (36.0-47.0) 08/16/23 04:03 MCV 99.7 fL (80.0-100.0) 08/16/23 04:03 MCH 33.4 pg (27.0-34.0) 08/16/23 04:03 MCHC 33.5 g/dL (33.0-35.0) 08/16/23 04:03 RDW 12.7 % (11.6-16.5) 08/16/23 04:03 Plt Count 309 X10^3/uL (150.0-450.0) 08/16/23 04:03 MPV 8.1 fL (7.4-11.0) 08/16/23 04:03 Neut % (Auto) 46.3 % (42.0-75.0) 08/16/23 04:03 Lymph % (Auto) 31.1 % (21.0-51.0) 08/16/23 04:03 [place] % (Auto) 11.9 % (0.0-13.0) 08/16/23 04:03 Eos % (Auto) 9.6 % (0.9-2.9) H 08/16/23 04:03 Baso % (Auto) 1.1 % (0.2-1.0) H 08/16/23 04:03 Neut # (Auto) 3.3 x10^3/uL (2.2-4.8) 08/16/23 04:03 Lymph # (Auto) 2.2 X10^3/uL (1.3-2.9) 08/16/23 04:03 [place] # (Auto) 0.8 x10^3/uL (0.3-0.8) 08/16/23 04:03 Eos # (Auto) 0.7 x10^3/uL (0.0-0.2) H 08/16/23 04:03 Baso # (Auto) 0.1 X10^3/uL (0.0-0.1) 08/16/23 04:03 Absolute Nucleated RBC 0.0 /100WBC 08/16/23 04:03 D-Dimer 0.55 ug/ml (0.0-0.57) 08/11/23 15:30 Sodium 141 mmol/L (136-145) 08/16/23 04:03 Corrected Sodium TNP 08/16/23 04:03 Potassium 4.8 mmol/L (3.5-5.1) 08/16/23 04:03 Chloride 107 mmol/L (98-107) 08/16/23 04:03 Carbon Dioxide 27.6 mmol/L (21-32) 08/16/23 04:03 BUN 10 mg/dL (7-18) 08/16/23 04:03 Creatinine 0.66 mg/dL (0.55-1.02) 08/16/23 04:03 Est GFR (MDRD) Af Amer > 60 (>60) 08/16/23 04:03 Est GFR (MDRD) Non-Af > 60 (>60) 08/16/23 04:03 Glucose 89 mg/dL (65-99) 08/16/23 04:03 Calcium 8.5 mg/dL (8.5-10.1) 08/16/23 04:03 Corrected Calcium 9.8 mg/dL (8.5-10.1) 08/16/23 04:03 Magnesium 2.2 mg/dL (2.0-2.9) 08/13/23 06:34 Total Bilirubin 0.20 mg/dL (0.2-1.0) 08/16/23 04:03 AST 13 Units/L (15-37) L 08/16/23 04:03 ALT 14 Units/L (12-78) 08/16/23 04:03 Alkaline Phosphatase 52 Units/L (46-116) 08/16/23 04:03 Troponin I High Sens < 4.0 ng/L (4.0-60.0) L 08/11/23 15:30 Total Protein 6.1 g/dL (6.4-8.2) L 08/16/23 04:03 Albumin 2.4 g/dL (3.4-5.0) L 08/16/23 04:03 Globulin 3.7 g/dL (2.5-4.5) 08/16/23 04:03 Albumin/Globulin Ratio 0.6 Ratio (1.1-2.1) L 08/16/23 04:03 Lipase 31 Units/L (16-77) 08/11/23 15:30 Specimen Type Clean catch urine 08/11/23 15:26 Urine Color Yellow (YELLOW) 08/11/23 15:26 Urine Appearance Clear (CLEAR) 08/11/23 15:26 Urine pH 6.0 (5.0 - 8.0) 08/11/23 15:26 Ur Specific [place] 1.030 (1.000-1.030) 08/11/23 15:26 Urine Protein 1+ (NEGATIVE) 08/11/23 15:26 Urine Glucose (UA) Negative (NEGATIVE) 08/11/23 15:26 Urine Ketones 2+ (NEGATIVE) 08/11/23 15:26 Urine Blood 1+ (NEGATIVE) 08/11/23 15:26 Urine Nitrite Negative (NEGATIVE) 08/11/23 15:26 Urine Bilirubin Negative (NEGATIVE) 08/11/23 15:26 Urine Urobilinogen 1+ (NORMAL) 08/11/23 15:26 Ur Leukocyte Esterase Negative (NEGATIVE) 08/11/23 15:26 Urine RBC 0-2 /HPF (0-3) 08/11/23 15:26 Urine WBC None seen /HPF (0-5) 08/11/23 15:26 Ur Squamous Epith Cells Rare /HPF (NEGATIVE) 08/11/23 15:26 Urine Bacteria Trace /HPF (NEGATIVE) 08/11/23 15:26 Hyaline Casts Rare /LPF (NEGATIVE) 08/11/23 15:26 Urine Mucus Rare /HPF (NEGATIVE) 08/11/23 15:26 Ur Culture Indicated? No/not indicated 08/11/23 15:26 Assessment and Plan 1: persistent RT pneumothorax, S/P placement of chest tube . same plan . incentive spirometer chest X ray in am . Problem Patient Problems: Patient Problems Pneumothorax, right (Acute) J93.9
--- NOTE | 2023-08-16 16:10 | RAD ---
EXAM:CHEST, 1 VIEWHISTORY:check chest tube placement;COMPARISON:Earlier same dayFINDINGS:The cardiomediastinal silhouette is stable.Expected positioning right chest tube with near resolution of now tiny right apical pneumothorax.No acute airspace disease. No large effusion. Subcutaneous free gas overlying the right chest.No acute osseous abnormality.IMPRESSION:Expected positioning of right chest tube with near resolution of now tiny right apical pneumothorax.THIS IS AN ELECTRONICALLY VERIFIED FINAL REPORT08/16/2023 4:07 PM - Electronically signed by Lanre Guevara MD
[2023-08-17 04:47] LABS: EOSINOPHILS # (AUTO) 0.4 x10^3/uL (0.0-0.2); HEMATOCRIT 35.3 % (36.0-47.0); HEMOGLOBIN 11.9 g/dL (12.0-16.0); LYMPHOCYTES # (AUTO) 2.1 X10^3/uL (1.3-2.9); MEAN CORPUSCULAR HGB CONC 33.7 g/dL (33.0-35.0)
[2023-08-17 05:03] LABS: ALANINE AMINOTRANSFERASE 12 Units/L (12-78); ALBUMIN 2.5 g/dL (3.4-5.0); ALKALINE PHOSPHATASE 60 Units/L (46-116); ASPARTATE AMINO TRANSFERASE 13 Units/L (15-37); BLOOD UREA NITROGEN 8 mg/dL (7-18); CALCIUM 8.6 mg/dL (8.5-10.1); CARBON DIOXIDE 30.3 mmol/L (21-32); CHLORIDE 106 mmol/L (98-107); COR CA(FOR HYPOALB) 9.8 mg/dL (8.5-10.1); CREATININE 0.64 mg/dL (0.55-1.02); GLUCOSE 93 mg/dL (65-99); SODIUM 143 mmol/L (136-145); TOTAL PROTEIN 6.2 g/dL (6.4-8.2); eGFR NON BLACK RACES > 60 (>60)
[2023-08-17 05:07] LABS: BASOPHILS % (AUTO) 0.5 % (0.2-1.0); EOSINOPHILS % (AUTO) 5.1 % (0.9-2.9); LYMPHOCYTES % (AUTO) 29.4 % (21.0-51.0); MEAN CORPUSCULAR HEMOGLOBIN 33.7 pg (27.0-34.0); MEAN PLATELET VOLUME 7.6 fL (7.4-11.0); MONOCYTES # (AUTO) 0.9 x10^3/uL (0.3-0.8); MONOCYTES % (AUTO) 12.9 % (0.0-13.0); NEUTROPHILS # (AUTO) 3.7 x10^3/uL (2.2-4.8); NEUTROPHILS % (AUTO) 52.1 % (42.0-75.0); PLATELET COUNT 323 X10^3/uL (150.0-450.0); RED BLOOD COUNT 3.53 X10^6/uL (3.5-5.4); RED CELL DISTRIBUTION WIDTH 12.6 % (11.6-16.5); WHITE BLOOD COUNT 7.1 X10^3/uL (3.6-10.0)
--- NOTE | 2023-08-17 08:13 | RAD ---
EXAM: Portable AP chest HISTORY: Pneumothorax chest tube COMPARISON: August 16, 2023 FINDINGS: Heart size normal with clear lungs. Stable position of right chest tube without significant pneumot horax identified. Persistent subcutaneous emphysema right chest wall and neck. IMPRESSION: No significant pneumothorax seen. No new abnormality demonstrated since recent similar. THIS IS AN ELECTRONICALLY VERIFIED FINAL REPORT 08/17/2023 8:09 AM - Electronically signed by Iain Foster MD
--- NOTE | 2023-08-17 16:30 | DR.PROGNOT ---
HOSPITAL PROGRESS NOTE Progress Note for Day of: Progress Note Date: 08/17/23 Chief Complaint Chief Complaint: Patient is comfortable today, denies any shortness of breath or chest pain. Moderate incisional pain at the chest tube site. Repeated chest x-ray today showed good lung expansion, no significant pneumothorax. Past Medical Family Social History Past Med/Fam/Surg Hx: No changes since H&P Allergies: Allergies No Known Drug Allergies Allergy (Unknown, Verified 08/11/23 17:10) Review Of Systems ROS: No change since H&P Vital Signs Vital Signs: Vital Signs Temperature 98.5 F Temperature 98.0 F Pulse Rate 62 Pulse Rate 68 Pulse Rate 68 Pulse Rate 70 Respiratory Rate 19 Respiratory Rate 20 Respiratory Rate 27 Respiratory Rate 20 Respiratory Rate 19 Respiratory Rate 22 Blood Pressure 90/54 Blood Pressure 99/55 O2 Sat by Pulse Oximetry 99 O2 Sat by Pulse Oximetry 100 O2 Sat by Pulse Oximetry 100 O2 Sat by Pulse Oximetry 100 Physical Exam Oriented: Normal Eyes: Normal Ear: Normal Nose: Normal Throat: Normal Respiratory: Normal Cardiovascular: Normal GI:Auscultation: Normal Speech Pattern: Clear and Appropriate Laboratory and Diagnostics 08/17/23 04:07 08/17/23 04:07 Labs: Laboratory WBC 7.1 X10^3/uL (3.6-10.0) 08/17/23 04:07 RBC 3.53 X10^6/uL (3.5-5.4) 08/17/23 04:07 Hgb 11.9 g/dL (12.0-16.0) L 08/17/23 04:07 Hct 35.3 % (36.0-47.0) L 08/17/23 04:07 MCV 100.0 fL (80.0-100.0) 08/17/23 04:07 MCH 33.7 pg (27.0-34.0) 08/17/23 04:07 MCHC 33.7 g/dL (33.0-35.0) 08/17/23 04:07 RDW 12.6 % (11.6-16.5) 08/17/23 04:07 Plt Count 323 X10^3/uL (150.0-450.0) 08/17/23 04:07 MPV 7.6 fL (7.4-11.0) 08/17/23 04:07 Neut % (Auto) 52.1 % (42.0-75.0) 08/17/23 04:07 Lymph % (Auto) 29.4 % (21.0-51.0) 08/17/23 04:07 [place] % (Auto) 12.9 % (0.0-13.0) 08/17/23 04:07 Eos % (Auto) 5.1 % (0.9-2.9) H 08/17/23 04:07 Baso % (Auto) 0.5 % (0.2-1.0) 08/17/23 04:07 Neut # (Auto) 3.7 x10^3/uL (2.2-4.8) 08/17/23 04:07 Lymph # (Auto) 2.1 X10^3/uL (1.3-2.9) 08/17/23 04:07 [place] # (Auto) 0.9 x10^3/uL (0.3-0.8) H 08/17/23 04:07 Eos # (Auto) 0.4 x10^3/uL (0.0-0.2) H 08/17/23 04:07 Baso # (Auto) 0.0 X10^3/uL (0.0-0.1) 08/17/23 04:07 Absolute Nucleated RBC 0.0 /100WBC 08/17/23 04:07 D-Dimer 0.55 ug/ml (0.0-0.57) 08/11/23 15:30 Sodium 143 mmol/L (136-145) 08/17/23 04:07 Corrected Sodium TNP 08/17/23 04:07 Potassium 5.0 mmol/L (3.5-5.1) 08/17/23 04:07 Chloride 106 mmol/L (98-107) 08/17/23 04:07 Carbon Dioxide 30.3 mmol/L (21-32) 08/17/23 04:07 BUN 8 mg/dL (7-18) 08/17/23 04:07 Creatinine 0.64 mg/dL (0.55-1.02) 08/17/23 04:07 Est GFR (MDRD) Af Amer > 60 (>60) 08/17/23 04:07 Est GFR (MDRD) Non-Af > 60 (>60) 08/17/23 04:07 Glucose 93 mg/dL (65-99) 08/17/23 04:07 Calcium 8.6 mg/dL (8.5-10.1) 08/17/23 04:07 Corrected Calcium 9.8 mg/dL (8.5-10.1) 08/17/23 04:07 Magnesium 2.2 mg/dL (2.0-2.9) 08/13/23 06:34 Total Bilirubin 0.20 mg/dL (0.2-1.0) 08/17/23 04:07 AST 13 Units/L (15-37) L 08/17/23 04:07 ALT 12 Units/L (12-78) 08/17/23 04:07 Alkaline Phosphatase 60 Units/L (46-116) 08/17/23 04:07 Troponin I High Sens < 4.0 ng/L (4.0-60.0) L 08/11/23 15:30 Total Protein 6.2 g/dL (6.4-8.2) L 08/17/23 04:07 Albumin 2.5 g/dL (3.4-5.0) L 08/17/23 04:07 Globulin 3.7 g/dL (2.5-4.5) 08/17/23 04:07 Albumin/Globulin Ratio 0.7 Ratio (1.1-2.1) L 08/17/23 04:07 Lipase 31 Units/L (16-77) 08/11/23 15:30 Specimen Type Clean catch urine 08/11/23 15:26 Urine Color Yellow (YELLOW) 08/11/23 15:26 Urine Appearance Clear (CLEAR) 08/11/23 15:26 Urine pH 6.0 (5.0 - 8.0) 08/11/23 15:26 Ur Specific [place] 1.030 (1.000-1.030) 08/11/23 15:26 Urine Protein 1+ (NEGATIVE) 08/11/23 15:26 Urine Glucose (UA) Negative (NEGATIVE) 08/11/23 15:26 Urine Ketones 2+ (NEGATIVE) 08/11/23 15:26 Urine Blood 1+ (NEGATIVE) 08/11/23 15:26 Urine Nitrite Negative (NEGATIVE) 08/11/23 15:26 Urine Bilirubin Negative (NEGATIVE) 08/11/23 15:26 Urine Urobilinogen 1+ (NORMAL) 08/11/23 15:26 Ur Leukocyte Esterase Negative (NEGATIVE) 08/11/23 15:26 Urine RBC 0-2 /HPF (0-3) 08/11/23 15:26 Urine WBC None seen /HPF (0-5) 08/11/23 15:26 Ur Squamous Epith Cells Rare /HPF (NEGATIVE) 08/11/23 15:26 Urine Bacteria Trace /HPF (NEGATIVE) 08/11/23 15:26 Hyaline Casts Rare /LPF (NEGATIVE) 08/11/23 15:26 Urine Mucus Rare /HPF (NEGATIVE) 08/11/23 15:26 Ur Culture Indicated? No/not indicated 08/11/23 15:26 Assessment and Plan 1: persistent RT pneumothorax, S/P placement of chest tube . same plan . incentive spirometer chest X ray in am . well try again in am .. Problem Patient Problems: Patient Problems Pneumothorax, right (Acute) J93.9
[2023-08-18 05:31] LABS: BASOPHILS # (AUTO) 0.1 X10^3/uL (0.0-0.1); BASOPHILS % (AUTO) 0.8 % (0.2-1.0); EOSINOPHILS # (AUTO) 0.5 x10^3/uL (0.0-0.2); EOSINOPHILS % (AUTO) 7.3 % (0.9-2.9); HEMATOCRIT 34.5 % (36.0-47.0); HEMOGLOBIN 11.5 g/dL (12.0-16.0); LYMPHOCYTES # (AUTO) 2.1 X10^3/uL (1.3-2.9); LYMPHOCYTES % (AUTO) 29.1 % (21.0-51.0); MEAN CORPUSCULAR HEMOGLOBIN 33.3 pg (27.0-34.0); MEAN CORPUSCULAR HGB CONC 33.3 g/dL (33.0-35.0); MEAN PLATELET VOLUME 7.8 fL (7.4-11.0); MONOCYTES # (AUTO) 1.1 x10^3/uL (0.3-0.8); MONOCYTES % (AUTO) 14.7 % (0.0-13.0); NEUTROPHILS # (AUTO) 3.5 x10^3/uL (2.2-4.8); NEUTROPHILS % (AUTO) 48.1 % (42.0-75.0); PLATELET COUNT 323 X10^3/uL (150.0-450.0); RED BLOOD COUNT 3.45 X10^6/uL (3.5-5.4); RED CELL DISTRIBUTION WIDTH 12.6 % (11.6-16.5); WHITE BLOOD COUNT 7.2 X10^3/uL (3.6-10.0)
[2023-08-18 05:44] LABS: ALANINE AMINOTRANSFERASE 13 Units/L (12-78); ALBUMIN 2.4 g/dL (3.4-5.0); ALKALINE PHOSPHATASE 55 Units/L (46-116); ASPARTATE AMINO TRANSFERASE 14 Units/L (15-37); BLOOD UREA NITROGEN 8 mg/dL (7-18); CALCIUM 8.1 mg/dL (8.5-10.1); CARBON DIOXIDE 28.3 mmol/L (21-32); CHLORIDE 107 mmol/L (98-107); COR CA(FOR HYPOALB) 9.4 mg/dL (8.5-10.1); CREATININE 0.57 mg/dL (0.55-1.02); GLUCOSE 91 mg/dL (65-99); POTASSIUM 4.6 mmol/L (3.5-5.1); SODIUM 141 mmol/L (136-145); TOTAL PROTEIN 5.9 g/dL (6.4-8.2); eGFR NON BLACK RACES > 60 (>60)
--- NOTE | 2023-08-18 07:41 | RAD ---
EXAM:CHEST, 1 VIEWHISTORY:Chest tube for Pneumo; RT PNEUMO, CHEST TUBECOMPARISON:No relevant prior studies were available for comparison at the time of interpretation.TECHNIQUE:CHEST, 1 VIEWFINDINGS:Chest:Lines and tubes: There is a right chest tube. Cardiac leads overlie the chestMediastinum: Cardiac and mediastinal shadow is within normal limits for size and contour.Pulmonary vessels: No pulmonary vascular congestion.Lung stevens: No suspicious airspace opacity.Pleura: No effusion. No pneumothorax.Bones and soft tissues: No acute osseous or soft tissue abnormality. Right chest wall subcutaneous emphysema. Right cervical subcutaneous emphysema.IMPRESSION:1. Right chest tube. No effusion or pneumothorax.2. Right chest wall and cervical subcutaneous emphysema3. No acute cardiopulmonary abnormalityTHIS IS AN ELECTRONICALLY VERIFIED FINAL REPORT08/18/2023 7:37 AM - Electronically signed by Ken Johnson MD
[2023-08-18 08:05] VITALS: O2SAT 100
--- NOTE | 2023-08-18 14:04 | RAD ---
EXAM: CHEST, 1 VIEW HISTORY: CHEST TUBE CLAMPED; COMPARISON: Prior study or studies were utilized for comparison during interpretation with the most relevant amy ed earlier today TECHNIQUE: CHEST, 1 VIEW FINDINGS: Chest: Lines and tubes: Cardiac leads overlie the chest. There is a right chest tube Mediastinum: Cardiac and mediastinal shadow is within normal limits for size and contour. Pulmonary vessels: No pulmonary vascular congestion. Lung stevens: No suspicious airspace opacity. Pleura: Tiny recurrent right pneumothorax Bones and soft tissues: No acute osseous or soft tissue abnormality. Right chest wall subcutaneous e mphysema. IMPRESSION: 1. Tiny recurrent right pneumothorax status post tube clamping THIS IS AN ELECTRONICALLY VERIFIED FINAL REPORT 08/18/2023 2:00 PM - Electronically signed by Ken Johnson MD
[2023-08-18 15:25] VITALS: TEMP 98.5
[2023-08-18 16:07] VITALS: BP 89/55; PULSE 63; RESP 21
--- NOTE | 2023-08-18 16:52 | DR.PROGNOT ---
HOSPITAL PROGRESS NOTE Progress Note for Day of: Progress Note Date: 08/18/23 Chief Complaint Chief Complaint: Patient is comfortable today, denies any shortness of breath or chest pain. Moderate incisional pain at the chest tube site. Repeated chest x-ray today showed good lung expansion, no significant pneumothorax. chest tube was removed .no SOB and stable VSs ..O2 100% Past Medical Family Social History Past Med/Fam/Surg Hx: No changes since H&P Allergies: Allergies No Known Drug Allergies Allergy (Unknown, Verified 08/11/23 17:10) Review Of Systems ROS: No change since H&P Vital Signs Vital Signs: Vital Signs Temperature 98.5 F Pulse Rate 63 Pulse Rate 75 Pulse Rate 61 Pulse Rate 58 Pulse Rate 70 Respiratory Rate 21 Respiratory Rate 28 Respiratory Rate 19 Respiratory Rate 18 Respiratory Rate 18 Respiratory Rate 22 Respiratory Rate 18 Respiratory Rate 24 Blood Pressure 89/55 Blood Pressure 94/53 Blood Pressure 88/52 O2 Sat by Pulse Oximetry 100 O2 Sat by Pulse Oximetry 100 O2 Sat by Pulse Oximetry 100 O2 Sat by Pulse Oximetry 100 O2 Sat by Pulse Oximetry 100 Physical Exam Oriented: Normal Eyes: Normal Ear: Normal Nose: Normal Throat: Normal Respiratory: Normal Cardiovascular: Normal GI:Auscultation: Normal Speech Pattern: Clear and Appropriate Laboratory and Diagnostics 08/18/23 04:50 08/18/23 04:50 Labs: Laboratory WBC 7.2 X10^3/uL (3.6-10.0) 08/18/23 04:50 RBC 3.45 X10^6/uL (3.5-5.4) L 08/18/23 04:50 Hgb 11.5 g/dL (12.0-16.0) L 08/18/23 04:50 Hct 34.5 % (36.0-47.0) L 08/18/23 04:50 MCV 100.0 fL (80.0-100.0) 08/18/23 04:50 MCH 33.3 pg (27.0-34.0) 08/18/23 04:50 MCHC 33.3 g/dL (33.0-35.0) 08/18/23 04:50 RDW 12.6 % (11.6-16.5) 08/18/23 04:50 Plt Count 323 X10^3/uL (150.0-450.0) 08/18/23 04:50 MPV 7.8 fL (7.4-11.0) 08/18/23 04:50 Neut % (Auto) 48.1 % (42.0-75.0) 08/18/23 04:50 Lymph % (Auto) 29.1 % (21.0-51.0) 08/18/23 04:50 [place] % (Auto) 14.7 % (0.0-13.0) H 08/18/23 04:50 Eos % (Auto) 7.3 % (0.9-2.9) H 08/18/23 04:50 Baso % (Auto) 0.8 % (0.2-1.0) 08/18/23 04:50 Neut # (Auto) 3.5 x10^3/uL (2.2-4.8) 08/18/23 04:50 Lymph # (Auto) 2.1 X10^3/uL (1.3-2.9) 08/18/23 04:50 [place] # (Auto) 1.1 x10^3/uL (0.3-0.8) H 08/18/23 04:50 Eos # (Auto) 0.5 x10^3/uL (0.0-0.2) H 08/18/23 04:50 Baso # (Auto) 0.1 X10^3/uL (0.0-0.1) 08/18/23 04:50 Absolute Nucleated RBC 0.0 /100WBC 08/18/23 04:50 D-Dimer 0.55 ug/ml (0.0-0.57) 08/11/23 15:30 Sodium 141 mmol/L (136-145) 08/18/23 04:50 Corrected Sodium TNP 08/18/23 04:50 Potassium 4.6 mmol/L (3.5-5.1) 08/18/23 04:50 Chloride 107 mmol/L (98-107) 08/18/23 04:50 Carbon Dioxide 28.3 mmol/L (21-32) 08/18/23 04:50 BUN 8 mg/dL (7-18) 08/18/23 04:50 Creatinine 0.57 mg/dL (0.55-1.02) 08/18/23 04:50 Est GFR (MDRD) Af Amer > 60 (>60) 08/18/23 04:50 Est GFR (MDRD) Non-Af > 60 (>60) 08/18/23 04:50 Glucose 91 mg/dL (65-99) 08/18/23 04:50 Calcium 8.1 mg/dL (8.5-10.1) L 08/18/23 04:50 Corrected Calcium 9.4 mg/dL (8.5-10.1) 08/18/23 04:50 Magnesium 2.2 mg/dL (2.0-2.9) 08/13/23 06:34 Total Bilirubin 0.20 mg/dL (0.2-1.0) 08/18/23 04:50 AST 14 Units/L (15-37) L 08/18/23 04:50 ALT 13 Units/L (12-78) 08/18/23 04:50 Alkaline Phosphatase 55 Units/L (46-116) 08/18/23 04:50 Troponin I High Sens < 4.0 ng/L (4.0-60.0) L 08/11/23 15:30 Total Protein 5.9 g/dL (6.4-8.2) L 08/18/23 04:50 Albumin 2.4 g/dL (3.4-5.0) L 08/18/23 04:50 Globulin 3.5 g/dL (2.5-4.5) 08/18/23 04:50 Albumin/Globulin Ratio 0.7 Ratio (1.1-2.1) L 08/18/23 04:50 Lipase 31 Units/L (16-77) 08/11/23 15:30 Specimen Type Clean catch urine 08/11/23 15:26 Urine Color Yellow (YELLOW) 08/11/23 15:26 Urine Appearance Clear (CLEAR) 08/11/23 15:26 Urine pH 6.0 (5.0 - 8.0) 08/11/23 15:26 Ur Specific [place] 1.030 (1.000-1.030) 08/11/23 15:26 Urine Protein 1+ (NEGATIVE) 08/11/23 15:26 Urine Glucose (UA) Negative (NEGATIVE) 08/11/23 15:26 Urine Ketones 2+ (NEGATIVE) 08/11/23 15:26 Urine Blood 1+ (NEGATIVE) 08/11/23 15:26 Urine Nitrite Negative (NEGATIVE) 08/11/23 15:26 Urine Bilirubin Negative (NEGATIVE) 08/11/23 15:26 Urine Urobilinogen 1+ (NORMAL) 08/11/23 15:26 Ur Leukocyte Esterase Negative (NEGATIVE) 08/11/23 15:26 Urine RBC 0-2 /HPF (0-3) 08/11/23 15:26 Urine WBC None seen /HPF (0-5) 08/11/23 15:26 Ur Squamous Epith Cells Rare /HPF (NEGATIVE) 08/11/23 15:26 Urine Bacteria Trace /HPF (NEGATIVE) 08/11/23 15:26 Hyaline Casts Rare /LPF (NEGATIVE) 08/11/23 15:26 Urine Mucus Rare /HPF (NEGATIVE) 08/11/23 15:26 Ur Culture Indicated? No/not indicated 08/11/23 15:26 Assessment and Plan 1: persistent RT pneumothorax, S/P removal of chest tube . incentive spirometer chest X ray now ,possible d/c . f/u in one week . Problem Patient Problems: Patient Problems Pneumothorax, right (Acute) J93.9
--- NOTE | 2023-08-18 17:21 | RAD ---
EXAM:CHEST, 1 VIEWHISTORY:chest tube removed;COMPARISON:08/18/2023FINDINGS:Th e trachea is midline. The cardiac silhouette is unremarkable. Right chest tube has been removed. Small right apical pneumothorax unchanged. There is subcutaneous emphysema along the right lateral chest wall. The lungs are clear without focal infiltrate or effusion. The bony thorax is unremarkable.IMPRESSION:Small right apical pneumothorax minimally decreased in size from prior study 08/18/2023 post chest tube removal.THIS IS AN ELECTRONICALLY VERIFIED FINAL REPORT08/18/2023 5:10 PM - Electronically signed by Chris Hays MD
== END 2023-08-18 17:40 | disposition home or self-care (01) | DRG 201 ==
LOC: ER 14:18 → ICU 17:23
PROVIDERS: ADMIT Obstetrics & Gynecology Obstetrics; ATTEND Obstetrics & Gynecology Obstetrics
DX: R00.0 Tachycardia, unspecified; J93.11 Primary spontaneous pneumothorax; R07.89 Other chest pain; R06.02 Shortness of breath